=== PATIENT | female | born 1995 | race Two or more races ===

== ENCOUNTER 2018-06-11 17:46 | Emergency (ER) | payer OTHER ==
[~2018-06-11] VITALS: Ht 157.5 cm; Wt 59.0 kg
[2018-06-11 18:18] VITALS: BP 123/88
[2018-06-11 19:48] LABS: Hepatitis B Surface Antibody Positive
[2018-06-11 20:31] LABS: Hepatitis B Surface Antigen Negative (Negative)
== END 2018-06-11 21:23 | disposition left against medical advice (07) ==
LOC: ER 17:48
DX: T75.89XA Other specified effects of external causes, initial encounter (principal); Z53.21 Procedure and treatment not carried out due to patient leaving prior to being seen by health care provider
CPT/HCPCS: 36415; 86703; 86706; 86803; 87340